=== PATIENT | female | born 1995 | race Caucasian/White ===

== ENCOUNTER 2017-07-08 20:11 | Emergency (ER) | payer MEDICAID ==
[~2017-07-08] VITALS: Ht 157.5 cm; Wt 99.8 kg
[2017-07-08 20:28] VITALS: BP 122/57
[2017-07-08 21:23] LABS: Basophils # (auto) 0 uL; Basophils % (auto) 0.5 % (0.0-2.0); Eosinophils # (auto) 0 uL; Eosinophils % (auto) 0.3 % (0.0-7.0); Hematocrit 36.6 % (36.0-46.0); Hemoglobin 12.4 g/dL (12.2-16.2); Lymphocytes # (auto) 1.4 uL; Lymphocytes % (auto) 19.9 % (10.0-50.0); Mean Corpuscular Hemoglobin 28.4 pg (28.0-32.0); Mean Corpuscular Hgb Conc. 33.9 g/dL (32.0-36.0); Mean Corpuscular Volume 83.8 fL (80.0-100.0); Mean Platelet Volume 8.5 fL (6.9-10.8); Monocytes # (auto) 0.6 uL; Monocytes % (auto) 8.6 % (0.0-12.0); Neutrophils # (auto) 4.9 uL; Neutrophils % (auto) 70.7 % (37.0-80.0); Nucleated Red Blood Cells % 0.1 %; Platelet Count (auto) 243 10^3/uL (140-450); Red Cell Distribution Width 15.7 % (11.8-14.3)
[2017-07-08 21:30] LABS: INR 0.87 (0.9-1.15); Partial Thromboplastin Time 24.3 sec (22.64-33.71); Prothrombin Time 9.5 sec (9.37-12.3)
[2017-07-08 21:35] LABS: Albumin 3.4 g/dL (3.4-5.0); BUN/Creatinine Ratio 14.3; Bilirubin, Total 0.2 mg/dL (0.2-1.0); Calcium 8.6 mg/dL (8.5-10.1); Magnesium 2.2 mg/dL (1.6-2.6); Total Protein 7.8 g/dL (6.4-8.2)
== END 2017-07-09 | disposition left against medical advice (07) ==
LOC: ER 20:14
DX: O26.891 Other specified pregnancy related conditions, first trimester (principal); R10.9 Unspecified abdominal pain; Z3A.11 11 weeks gestation of pregnancy
CPT/HCPCS: 36415; 80053; 82150; 83690; 83735; 84702; 85025; 85610; 85730

== ENCOUNTER 2017-09-21 22:35 | Observation (INO) | payer MEDICAID ==
[~2017-09-21] VITALS: Ht 160 cm; Wt 74.8 kg
[2017-09-21 23:20] LABS: Basophils # (auto) 0 uL; Basophils % (auto) 0.4 % (0.0-2.0); Eosinophils # (auto) 0 uL; Eosinophils % (auto) 0.3 % (0.0-7.0); Hematocrit 32.1 % (36.0-46.0); Hemoglobin 10.7 g/dL (12.2-16.2); Lymphocytes # (auto) 1.5 uL; Mean Corpuscular Hemoglobin 28.6 pg (28.0-32.0); Mean Corpuscular Hgb Conc. 33.2 g/dL (32.0-36.0); Mean Corpuscular Volume 85.9 fL (80.0-100.0); Monocytes # (auto) 0.5 uL; Monocytes % (auto) 6.3 % (0.0-12.0); Neutrophils # (auto) 5.7 uL; Platelet Count (auto) 266 10^3/uL (140-450); Red Blood Cells 3.74 10^6/uL (4.0-5.20); Red Cell Distribution Width 15.7 % (11.8-14.3); White Blood Cell 7.7 10^3/uL (4.4-10.8)
[2017-09-21] MEDS ORDERED: PREN-96 PO (23:28)
[2017-09-21 23:42] LABS: Albumin 2.8 g/dL (3.4-5.0); BUN/Creatinine Ratio 18.3; Calcium 8.6 mg/dL (8.5-10.1); Potassium 3.3 mmol/L (3.5-5.1)
[2017-09-21 23:43] LABS: Bilirubin, Total 0.2 mg/dL (0.2-1.0); Total Protein 7.2 g/dL (6.4-8.2)
[2017-09-22 00:12] LABS: Urine Bacteria NONE SEEN /hpf (None Seen); Urine Blood 3+ /uL (Negative); Urine Specific Gravity 1.006 (1.001-1.035); Urine WBC 7 /hpf (0 - 5)
[2017-09-22 00:22] LABS: Alcohol, Urine < 3.0 mg/dL (0-5); Amphetamine Screen, Urine NEGATIVE (NEGATIVE); Barbiturate Scree,Urine NEGATIVE (NEGATIVE); Benzodiazephine Screen, Urine NEGATIVE (NEGATIVE); Cannabinoid Screen, Urine NEGATIVE (NEGATIVE); Cocaine Screen, Urine NEGATIVE (NEGATIVE); Opiate Scree,Urine NEGATIVE (NEGATIVE); Phencyclidine Screen, Urine NEGATIVE (NEGATIVE)
[2017-09-24 03:06] LABS: RPR Non Reactive (Non Reactive)
[2017-09-24 08:06] LABS: Rubella Antibodies, IgG <0.90 index (Immune >0.99)
== END 2017-09-22 00:50 | disposition home or self-care (01) | DRG 566 ==
LOC: LDRP 22:35
PROVIDERS: ADMIT Obstetrics & Gynecology; ATTEND Obstetrics & Gynecology
DX: O46.92 Antepartum hemorrhage, unspecified, second trimester (principal); Z3A.21 21 weeks gestation of pregnancy
CPT/HCPCS: 36415; 59025; 76805; 80053; 80307; 81001; 81002; 85025; 86592; 86703; 86762; 86850; 86900; 86901; 87340; G0378